=== PATIENT | female | born 1975 | race American Indian/Alaskan Native ===

== ENCOUNTER 2019-04-28 18:04 | Emergency (ER) | payer OTHER ==
[2019-04-28 18:18] VITALS: BP 153/92
--- NOTE | 2019-04-28 20:43 | Emergency Department Report ---
ED General Adult HPI - General Chief complaint: Upper Respiratory Infection Stated complaint: COLD SX Time Seen by Provider: 04/28/19 19:56 Source: patient Mode of arrival: Ambulatory Limitations: No Limitations - History of Present Illness Initial comments: The patient presents to the emergency department with a chief complaint of a cough 3 weeks. Patient states that she has not had a fever but has had this persistent cough for the last 3 weeks status that is worse when leaning flat. Patient states that she has a history of bronchitis and this feels very similar to prior episodes. Patient only complains of chest pain with cough otherwise no randy chest pain. -: Sudden, week(s) (3) Improves with: none Worsens with: none Associated Symptoms: denies other symptoms Treatments Prior to Arrival: none - Related Data Previous Rx's Medication Instructions Recorded Last Taken Type ALBUTEROL Inhaler (OR & NICU) 2 puff IH Q4HR PRN #1 inhalation 04/28/19 Unknown Rx [ProAir HFA Inhaler] Azithromycin [Zithromax Z-REJI] 250 mg PO DAILY #6 tablet 04/28/19 Unknown Rx Benzonatate [Tessalon Perles] 100 mg PO Q8HR PRN #20 capsule 04/28/19 Unknown Rx Codeine Phosphate/Guaifenesin 180 ml PO Q12HR PRN #180 liquid 04/28/19 Unknown Rx [Guaifenesin-Codeine Syrup] predniSONE [Deltasone] 20 mg PO DAILY #15 tablet 04/28/19 Unknown Rx Allergies Allergy/AdvReac Type Severity Reaction Status Date / Time pollen extracts Allergy Hives Verified 04/28/19 18:08 banana AdvReac Hives Verified 04/28/19 18:08 ED Review of Systems ROS: Stated complaint: COLD SX Other details as noted in HPI Comment: All other systems reviewed and negative Constitutional: denies: chills, fever Eyes: denies: eye pain, eye discharge, vision change ENT: denies: ear pain, throat pain Respiratory: denies: cough, shortness of breath, wheezing Cardiovascular: denies: chest pain, palpitations Endocrine: no symptoms reported Gastrointestinal: denies: abdominal pain, nausea, diarrhea Genitourinary: denies: urgency, dysuria, discharge Musculoskeletal: denies: back pain, joint swelling, arthralgia Skin: denies: rash, lesions Neurological: denies: headache, weakness, paresthesias Psychiatric: denies: anxiety, depression Hematological/Lymphatic: denies: easy bleeding, easy bruising ED Past Medical Hx - Past Medical History Previous Medical History?: No - Surgical History Past Surgical History?: No - Social History Smoking Status: Never Smoker Substance Use Type: None - Medications Home Medications: Home Medications Medication Instructions Recorded Confirmed Last Taken Type ALBUTEROL Inhaler (OR & NICU) 2 puff IH Q4HR PRN #1 inhalation 04/28/19 Unknown Rx [ProAir HFA Inhaler] Azithromycin [Zithromax Z-REJI] 250 mg PO DAILY #6 tablet 04/28/19 Unknown Rx Benzonatate [Tessalon Perles] 100 mg PO Q8HR PRN #20 capsule 04/28/19 Unknown Rx Codeine Phosphate/Guaifenesin 180 ml PO Q12HR PRN #180 liquid 04/28/19 Unknown Rx [Guaifenesin-Codeine Syrup] predniSONE [Deltasone] 20 mg PO DAILY #15 tablet 04/28/19 Unknown Rx ED Physical Exam - General Limitations: No Limitations General appearance: alert, in no apparent distress - Head Head exam: Present: atraumatic, normocephalic - Eye Eye exam: Present: normal appearance - ENT ENT exam: Present: mucous membranes moist - Neck Neck exam: Present: normal inspection - Respiratory Respiratory exam: Present: normal lung sounds bilaterally, wheezes (mild expiratory wheezing on exam). Absent: respiratory distress - Cardiovascular Cardiovascular Exam: Present: regular rate, normal rhythm. Absent: systolic murmur, diastolic murmur, rubs, gallop - GI/Abdominal GI/Abdominal exam: Present: soft, normal bowel sounds - Extremities Exam Extremities exam: Present: normal inspection - Back Exam Back exam: Present: normal inspection - Neurological Exam Neurological exam: Present: alert, oriented X3, CN II-XII intact. Absent: motor sensory deficit - Psychiatric Psychiatric exam: Present: normal affect, normal mood - Skin Skin exam: Present: warm, dry, intact, normal color. Absent: rash ED Course Vital Signs 04/28/19 18:14 Temperature 98.3 F Pulse Rate 86 Respiratory 18 Rate Blood Pressure 153/92 O2 Sat by Pulse 97 Oximetry ED Medical Decision Making - Medical Decision Making Plan of care discussed with patient Critical care attestation.: If time is entered above; I have spent that time in minutes in the direct care of this critically ill patient, excluding procedure time. ED Disposition Clinical Impression: Bronchitis Disposition: DC-01 TO HOME OR SELFCARE Is pt being admited?: No Does the pt Need Aspirin: No Condition: Stable Instructions: Acute Bronchitis (ED) Additional Instructions: return if worse Referrals: [facility] [Provider Group] - 3-5 Days [facility] [Provider Group] - 3-5 Days Time of Disposition: 20:42
== END 2019-04-28 20:57 | disposition home or self-care (01) ==
LOC: ED 18:04
DX: J40 Bronchitis, not specified as acute or chronic (principal); Z91.048 Other nonmedicinal substance allergy status; Z91.018 Allergy to other foods